=== PATIENT | male | born 1990 ===

== ENCOUNTER 2020-10-12 12:30 | Emergency (ER) | payer OTHER ==
[~2020-10-12] VITALS: Ht 167.6 cm; Wt 65.9 kg
[2020-10-12] MEDS ORDERED: TETanus/Pertussis (Acell)/Diphther VAC/PF (Tdap-Adult) 0.5ml syringe IMVAC ONE (13:20)
[2020-10-12] MEDS ORDERED: amox tr/potassium clavulanate 875/125mg TAB PO ONE (13:20)
--- NOTE | 2020-10-12 13:27 | NUR ---
BILATERAL UPPER LEG WOUNDS BEING CLEANED W/ NS AND SOAPY SPONGE BY WILL, PCT.
[2020-10-12] MEDS ORDERED: AMOX-580 PO (13:39)
[2020-10-12 13:58] VITALS: BP 111/68
== END 2020-10-12 14:00 ==
LOC: ER 12:31
DX: S80.871A Other superficial bite, right lower leg, initial encounter (principal); Z02.89 Encounter for other administrative examinations; W54.0XXA Bitten by dog, initial encounter; Y93.89 Activity, other specified; Y92.89 Other specified places as the place of occurrence of the external cause; Y99.8 Other external cause status
CPT/HCPCS: 90471; 90715; 99283